=== PATIENT | male | born 1960 | race Two or more races ===

== ENCOUNTER → 2023-11-06 08:11 | Outpatient (REF) | payer OTHER, SELFPAY ==
[2023-11-06 09:25] LABS: Glycohemoglobin (HgbA1c) 6.3 % (4.0-5.6)
[2023-11-06 09:26] LABS: ALT (SGPT) 21 U/L (0-50); AST (SGOT) 24 U/L (17-59); Albumin 4.1 g/dl (3.5-5.0); Alkaline Phosphatase 119 U/L (38-126); Blood Urea Nitrogen 15 mg/dl (9-20); Calcium 9.6 mg/dl (8.4-10.2); Carbon Dioxide 27 mmol/L (22-30); Chloride 103 mmol/L (98-107); Glucose 102 mg/dl (70-99); Potassium 4.4 mmol/L (3.5-5.1); Sodium 139 mmol/L (135-145); Total Bilirubin 0.8 mg/dl (0.2-1.3); Total Protein 7.2 g/dl (6.3-8.2); eGFR > 60.00
[2023-11-06 09:56] LABS: TSH 1.03 uIU/ml (0.47-4.68)
== END ==
LOC: CLINIC 08:11
PROVIDERS: ATTENDING PHYSICIAN Nurse Practitioner Adult Health
DX: R73.03 Prediabetes (principal); E03.9 Hypothyroidism, unspecified
CPT/HCPCS: 36415; 80053; 83036; 84439; 84443